=== PATIENT | male | born 1965 | race Caucasian/White ===

== ENCOUNTER 2022-08-03 11:50 | Emergency (ER) | payer MEDICARE ==
[2022-08-03 12:13] VITALS: BP 115/67
[2022-08-03 12:58] VITALS: PULSE 105; O2SAT 95
--- NOTE | 2022-08-03 15:40 | ERPHSYRPT ---
- History of Present Illness Time Seen by Provider: 08/03/22 11:53 Source: patient Exam Limitations: no limitations Patient Subjective Stated Complaint: Pt broke his right foot 10-15 years ago and hasn't had any issues since, yesterday it began hurting somewhat when he was walking and today he has extreme pain rated at 8/10 when he tries to walk on it Triage Nursing Assessment: Pt brought self to the ER, tachycardic, denies pain while sitting but rates it an 8/10 if he stands, denies any new injury to foot, right foot slightly swollen on top, pulses normal, doesn't appear to be in any distress Physician History: 57-year-old morbidly obese male with history of hypertension, hyperlipidemia, diabetes mellitus with peripheral neuropathy presented in the ER with chief complaint of right foot pain since morning. Patient reports she woke up and tried to put weight on right foot and started to feel excruciating pain moderate to severe, sharp, more with ambulation/weightbearing and better with resting. Sleep currently resting has minimal pain. Denies any fall or trauma. Does report having history of injury to same foot few months to a year ago. Method of Injury: unknown Occurred: this morning Quality: sharpness Severity of Pain-Max: moderate Severity of Pain-Current: mild Lower Extremities Pain: foot: right Modifying Factors: Improves With: immobilization. Worsens With: movement Allergies/Adverse Reactions: Antihistamines - Alkylamine Allergy (Verified 08/03/22 12:13) Antihistamines - Ethanolamine Allergy (Verified 08/03/22 12:13) Antihistamines - Ethylenediamine Allergy (Verified 08/03/22 12:13) Antihistamines - Piperazine Allergy (Verified 08/03/22 12:13) Antihistamines - Piperidine Allergy (Verified 08/03/22 12:13) Home Medications: Dulaglutide [Trulicity] 1.5 mg SQ WEEKLY 08/03/22 [History] Gabapentin [Neurontin ] 300 mg PO TID 08/03/22 [History] Metformin HCl [Metformin ER Osmotic] 1,000 mg PO DAILY 08/03/22 [History] Oxycodone HCl 15 mg PO Q6H PRN 08/03/22 [History] Potassium Chloride 10 meq PO TID 08/03/22 [History] Quinapril HCl [Accupril] 40 mg PO DAILY 08/03/22 [History] Rosuvastatin Calcium 10 mg PO DAILY 08/03/22 [History] hydroCHLOROthiazide [Hydrochlorothiazide] 12.5 mg PO DAILY 08/03/22 [History] Hx Influenza Vaccination/Date Given: Yes Hx Pneumococcal Vaccination/Date Given: Yes Travel Risk - International Travel Have you traveled outside of the country in past 3 weeks: No - Coronavirus Screening Are you exhibiting any of the following symptoms?: No Close contact with a COVID-19 positive Pt in past 14-21 Days: No - Vaccine Status Have you recieved a Covid-19 vaccination: Yes [employer]: [employer] - Vaccination Dates Date of 2cond Vaccination (if applicable): 2020 - Review of Systems Constitutional: No Symptoms Eyes: No Symptoms Respiratory: No Symptoms Cardiac: No Symptoms Abdominal/Gastrointestinal: No Symptoms Musculoskeletal: Joint Pain Skin: No Symptoms Neurological: Sensory Changes Psychological: No Symptoms Endocrine: No Symptoms Immunological/Allergic: No Symptoms - Past Medical History Pertinent Past Medical History: Yes Cardiac History: Coronary Artery Disease, Hypertension Endocrine Medical History: Diabetes Type II Musculoskeletal History: Fractures, Rheumatoid Arthritis GI Medical History: Hernia Other Medical History: chronic back pain due to smashing a disc when he fell - Past Surgical History Past Surgical History: Yes Cardiac: Other Gastrointestinal: Cholecystectomy - Social History Smoking Status: Former smoker Exposure to second hand smoke: No Drug Use: none Patient Lives Alone: Yes - Nursing Vital Signs Nursing Vital Signs: Initial Vital Signs Temperature 96.1 F 08/03/22 11:59 Pulse Rate 115 H 08/03/22 11:59 Blood Pressure 115/67 08/03/22 11:59 O2 Sat by Pulse Oximetry 94 L 08/03/22 11:59 Pain Scale Pain Intensity 0 - Physical Exam General Appearance: no apparent distress, alert Cardiovascular/Respiratory Exam: normal breath sounds, tachycardia Back Exam: normal inspection Legs Exam: bilateral leg: swelling Ankle Exam: bilateral ankle: non-tender, normal range of motion, swelling Foot Exam: right foot: bone tenderness (Distal dorsum of foot), pain, soft tissue tenderness, left foot: non-tender, bilateral foot: normal range of motion, no evidence of injury Neuro/Tendon Exam: normal sensation, normal motor functions Mental Status Exam: alert, oriented x 3 Skin Exam: normal color SpO2 Interpretation: normal SpO2: 95 O2 Delivery: Room Air Ordered Tests: Active Orders 24 hr Category Date Time Status FOOT (MINIMUM 3 VIEWS) Stat Exams 08/03/22 13:19 Taken - Progress Progress: unchanged Progress Note: 08/03/22 15:44 Does not want any pain medication. As it hurts only when he moves. X-rays negative for fracture dislocation. Recommended Ariel wrap, weightbearing as tolerated and outpatient podiatry follow-up. Discussed signs symptoms of worsening needing return to ER which he seems understanding. Counseled pt/family regarding: diagnosis, need for follow-up, rad results - Departure Departure Disposition: Home Clinical Impression: Foot pain, right Condition: Stable Critical Care Time: No Referrals: PANCHITO REILLY MD [Primary Care Provider] - Follow Up with PCP/3 days RICO MARTINEZ DPM [ACTIVE STAFF] - Follow up/PCP as directed (Tomorrow for reevaluation) Instructions: Foot Sprain (DC) Additional Instructions: Take Tylenol as needed for pain. Keep it elevated. Follow-up with primary care and podiatry for reevaluation. Return to ER for any worsening. Avoid exertional activities. Use cane/walker for ambulation to avoid a fall.
--- NOTE | 2022-08-03 18:03 | XRAY ---
Exam: 3 views (4 images) of the right foot from 08/03/2022. Comparison: None. Indication: Right foot pain; no known injury. Findings: AP, oblique, and 2 lateral images of the right foot were obtained. I see no acute fracture or dislocation. There is some deformity of the distal right fibula which I believe is due to an old healed fracture. The joint spaces appear unremarkable. There is mild periarticular bone demineralization. The joint spaces appear unremarkable. A moderate-sized posterior calcaneal enthesophyte is seen. Impression: 1. No acute right foot fracture or dislocation is seen. 2. Deformity of the distal right fibula suggestive of an old healed fracture. Correlate with trauma history. 3. Moderate-sized posterior calcaneal enthesophyte. 4. There appears to be some mild periarticular bone demineralization. However, the joint spaces appear essentially unremarkable.
== END 2022-08-03 16:15 | disposition home or self-care (01) ==
LOC: ED 11:50
DX: M79.671 Pain in right foot (principal); I10 Essential (primary) hypertension; E78.5 Hyperlipidemia, unspecified; E11.42 Type 2 diabetes mellitus with diabetic polyneuropathy; Z79.891 Long term (current) use of opiate analgesic; Z79.84 Long term (current) use of oral hypoglycemic drugs; Z79.899 Other long term (current) drug therapy
CPT/HCPCS: 73630; 99282